=== PATIENT | female | born 1975 | race Caucasian/White ===

== ENCOUNTER → 2018-01-17 | Outpatient (CLI) | payer OTHER ==
--- NOTE | 2018-01-19 08:55 | MM ---
Reason for exam: screening (asymptomatic). Last mammogram was performed 4 years and 1 month ago. History: Patient has history of other cancer at age 26. Took hormonal contraceptives for 18 years. Physical Findings: A clinical breast exam by your physician is recommended on an annual basis and results should be correlated with mammographic findings. MG Screening Mammo w CAD Bilateral CC and MLO view(s) were taken. Prior study comparison: December 12, 2013, bilateral MG diagnostic mammo w CAD [facility]. There are scattered fibroglandular densities. There is chronic nodularity bilaterally. No significant changes when compared with prior studies. ASSESSMENT: Negative, BI-RAD 1 RECOMMENDATION: Routine screening mammogram of both breasts in 1 year.
== END | disposition home or self-care (01) ==
LOC: RADMAMWWP 07:34
PROVIDERS: ATTEND Family Medicine
DX: Z12.31 Encounter for screening mammogram for malignant neoplasm of breast (principal)
CPT/HCPCS: 77067

== ENCOUNTER → 2018-09-24 | Outpatient (CLI) | payer OTHER ==
--- NOTE | 2018-09-24 09:42 | US ---
EXAMINATION TYPE: US abdomen complete DATE OF EXAM: 09/24/2018 COMPARISON: NONE CLINICAL HISTORY: R10.9 Left lateral abd pain,R74.8 Elevated lipase. LLQ pain elevated lipase. EXAM MEASUREMENTS: Liver Length: 14.1 cm Gallbladder Wall: .2 cm CBD: .5 cm Spleen: 11.1 cm Right Kidney: 9.6 x 2.9 x 4.6 cm Left Kidney: 9.8 x 4.0 x 3.5 cm Pancreas: Tail obscured by overlying bowel gas Liver: wnl Gallbladder: wnl Evidence for sonographic Arciniega's sign: No CBD: wnl Spleen: wnl Right Kidney: wnl Left Kidney: wnl Upper IVC: wnl Abd Aorta: wnl The liver is homogenous. The intrahepatic portion of the IVC and proximal abdominal aorta are within normal limits. There is no evidence of cholelithiasis. Common bile duct is unremarkable. The visu alized portions of the pancreas are homogenous. The spleen is unremarkable. Kidneys are symmetric a nd free of hydronephrosis. No renal lesions are seen. IMPRESSION: No distinct abnormality appreciated.
== END | disposition home or self-care (01) ==
LOC: RADUSWWP 09:00
PROVIDERS: ATTEND Nurse Practitioner Family
DX: R10.9 Unspecified abdominal pain (principal); R74.8 Abnormal levels of other serum enzymes
CPT/HCPCS: 76700

== ENCOUNTER → 2019-01-26 | Outpatient (CLI) | payer OTHER ==
--- NOTE | 2019-01-28 09:57 | MM ---
Reason for exam: screening (asymptomatic). Last mammogram was performed 1 year ago. History: Patient has history of other cancer at age 26. Took hormonal contraceptives for 18 years. Physical Findings: A clinical breast exam by your physician is recommended on an annual basis and results should be correlated with mammographic findings. MG Screening Mammo w CAD Bilateral CC and MLO view(s) were taken. Prior study comparison: January 17, 2018, bilateral MG screening mammo w CAD. December 12, 2013, bilateral MG diagnostic mammo w CAD [facility]. The breast tissue is heterogeneously dense. This may lower the sensitivity of mammography. There is no discrete abnormality. No significant changes when compared with prior studies. ASSESSMENT: Negative, BI-RAD 1 RECOMMENDATION: Routine screening mammogram of both breasts in 1 year.
== END | disposition home or self-care (01) ==
LOC: RADMAMWWP 11:00
PROVIDERS: ATTEND Family Medicine
DX: Z12.31 Encounter for screening mammogram for malignant neoplasm of breast (principal)
CPT/HCPCS: 77067

== ENCOUNTER 2021-09-17 07:44 | Day surgery (SDC) | payer BC, OTHER ==
[~2021-09-17 07:44] MED LIST: LACTATED RINGERS 1,000 ML IV SCH
[2021-09-17 08:17] VITALS: TEMP 97.1
[2021-09-17] MEDS ORDERED: LIDOCAINE 1% (10MG/ML) FOR IV START INTRADERMA ONE (08:28)
[2021-09-17] MEDS ORDERED: PROPOFOL 10 MG/ML 20 ML VIAL IV ONE (09:01)
--- NOTE | 2021-09-17 09:23 | P.PCN ---
Date of Procedure: 09/17/21 Procedure(s) Performed: BRIEF HISTORY: Patient is a 46-year-old pleasant white female scheduled for an elective colonoscopy as a part of evaluation of left upper quadrant abdominal pain associated with alternating diarrhea and constipation for the last 6 months duration. He denies any rectal bleeding. PROCEDURE PERFORMED: Colonoscopy with random biopsies. PREOPERATIVE DIAGNOSIS: Left upper quadrant abdominal pain and change in bowel habits. IV sedation per Anesthesia. PROCEDURE: After informed consent was obtained, the patient, was brought into the endoscopy unit. IV sedation was administered by Anesthesia under continuous monitoring. Digital rectal examination was normal. Initially the Olympus CF-160 flexible video colonoscope was then inserted in the rectum, gradually advanced into the cecum without any difficulty. Careful examination was performed as the scope was gradually being withdrawn. Ileocecal valve and the appendiceal orifice were visualized and appeared normal. Prep was excellent. Terminal ileum was intubated and 20 cm visualized and appeared normal. Mucosa of the cecum, ascending colon, transverse colon, descending colon, sigmoid colon, and rectum appeared normal. Biopsies were done from ascending and descending colon to rule out colonoscopy/collagenous colitis. Retroflexion was performed in the rectum and no lesions were seen. The patient tolerated the procedure well. IMPRESSION: Normal-appearing colon from rectum to cecum with no evidence of colorectal neoplasia. RECOMMENDATIONS: Findings of this examination were discussed with the patient as well as her family. She was advised to follow with the biopsy results. Her symptoms have suggestive of irritable bowel syndrome. She'll be seen in office in 2-3 weeks..
[2021-09-17 09:56] VITALS: BP 146/50; PULSE 66; RESP 20
== END 2021-09-17 10:14 | disposition home or self-care (01) ==
LOC: ORWHC2ENDO 07:44
PROVIDERS: ATTEND Internal Medicine Gastroenterology
DX: R10.12 Left upper quadrant pain (principal); R19.7 Diarrhea, unspecified; K59.00 Constipation, unspecified; F39 Unspecified mood [affective] disorder; Z79.899 Other long term (current) drug therapy; Z88.5 Allergy status to narcotic agent; Z88.0 Allergy status to penicillin; Z91.040 Latex allergy status
CPT/HCPCS: 81025; 88305; 45380; J2704

== ENCOUNTER → 2022-06-11 | Outpatient (CLI) | payer OTHER ==
[2022-06-11 12:58] LABS: Basophils # (A) 0.04 X 10*3/uL (0.00-0.10); Basophils % (A) 0.8 %; Eosinophils # (A) 0.18 X 10*3/uL (0.04-0.35); Eosinophils % (A) 3.5 %; HCT 39.2 % (37.2-46.3); HGB 13.2 g/dL (12.0-15.0); Immature Grans, Automated 0.2 %; Lymphocytes % (A) 27.2 %; MCH 31.9 pg (27.0-32.0); MCHC 33.7 g/dL (32.0-37.0); MCV 94.7 fL (80.0-97.0); Mean Platelet Volume 9.6 fL (9.5-12.2); Monocytes # (A) 0.27 X 10*3/uL (0.20-1.00); Monocytes % (A) 5.2 %; NRBC Per 100 WBC 0 /100 WBCS (0.0-0.0); Neutrophils # (A) 3.25 X 10*3/uL (1.80-7.70); Neutrophils % (A) 63.1 %; Platelet Count 242 X 10*3/uL (140-440); RBC 4.14 X 10*6/uL (4.10-5.20); RDW 12.4 % (11.5-14.5); WBC 5.15 X 10*3/uL (4.50-10.00)
[2022-06-11 13:26] LABS: % Iron Saturation 31.08 (12.00-45.00); ALT 18 U/L (8-44); AST 16 U/L (13-35); African American GFR (CKD) 88.4 (60.0-200.0); Albumin 4.3 g/dL (3.8-4.9); Albumin/Globulin Ratio 1.68 (1.60-3.17); Alkaline Phosphatase 31 U/L (41-126); Blood Urea Nitrogen 10.4 mg/dL (9.0-27.0); Calcium 9.5 mg/dL (8.7-10.3); Carbon Dioxide 27.6 mmol/L (20.0-27.5); Chloride 104 mmol/L (96-109); Chol/HDL Ratio 2.21 Ratio; Ferritin 69.5 ng/mL (10.0-291.0); Globulin 2.5 g/dL (1.6-3.3); Glucose 94 mg/dL (70-110); Iron 114 ug/dL (50-170); LDL Cholesterol,Calculated 77.7 mg/dL (0.0-131.0); Non-African American GFR(CKD) 76.3 (60.0-200.0); Potassium 4.7 mmol/L (3.5-5.5); Sodium 141 mmol/L (135-145); Total Iron Binding Capacity 367 ug/dL (228-460); Total Protein 6.8 g/dL (6.2-8.2)
== END | disposition home or self-care (01) ==
LOC: LABWHC1 10:01
PROVIDERS: ATTEND Nurse Practitioner Family
DX: E78.5 Hyperlipidemia, unspecified (principal); R00.2 Palpitations; Z86.2 Personal history of diseases of the blood and blood-forming organs and certain disorders involving the immune mechanism
CPT/HCPCS: 36415; 80053; 80061; 82306; 82607; 82728; 82746; 83036; 83540; 83550; 84443; 85025

== ENCOUNTER → 2022-07-14 | Outpatient (CLI) | payer OTHER ==
--- NOTE | 2022-07-15 06:41 | MM ---
Reason for Exam: Screening (asymptomatic). Last mammogram was performed 3 year(s) and 6 month(s) ago. Patient History: Menarche at age 12. First Full-Term at age 20. Premenopausal. Other cancer, age 26. Patient used Hormonal Contraceptives for 18 years. Risk Values: Ana Rosa 5 year model risk: 0.8%. NCI Lifetime model risk: 8.4%. Prior Study Comparison: 12/12/2013 Bilateral Diagnostic Mammogram, [facility]. 01/17/2018 Bilateral Screening Mammogram, [facility]. 01/26/2019 Bilateral Screening Mammogram, [facility]. Tissue Density: There are scattered fibroglandular densities. Findings: Analyzed By CAD. A focal 1.3 cm asymmetry in the anterior depth slightly medial aspect on CC view only in the left breast is more prominent from prior studies. Summation density versus true lesion. Overall Assessment: Incomplete: need additional imaging evaluation, BI-RAD 0 Management: Special View Mammogram of the left breast. Return for additional spot view and true lateral view left breast. Patient should continue monthly self-breast exams. A clinical breast exam by your physician is recommended on an annual basis. This exam should not preclude additional follow-up of suspicious palpable abnormalities. Note on Ana Rosa scores and lifetime risk: 1. A Ana Rosa score greater than 3% is considered moderate risk. If this is the case, consider specialist referral to assess eligibility for a risk reducing agent. 2. If overall lifetime risk for the development of breast cancer is 20% or higher, the patient may qualify for future screening with alternating mammogram and breast MRI. Electronically signed and approved by: Florentin Kramer M.D.
== END | disposition home or self-care (01) ==
LOC: RADMAMWWP 07:36
PROVIDERS: ATTEND Family Medicine
DX: Z12.31 Encounter for screening mammogram for malignant neoplasm of breast (principal)
CPT/HCPCS: 77067

== ENCOUNTER → 2022-07-20 | Outpatient (CLI) | payer OTHER ==
--- NOTE | 2022-07-20 08:03 | MM ---
Reason for Exam: Additional evaluation requested from abnormal screening. Last screening mammogram was performed less than 1 month ago. Patient History: Menarche at age 12. First Full-Term at age 20. Premenopausal. Other cancer, age 26. Patient used Hormonal Contraceptives for 18 years. Risk Values: Ana Rosa 5 year model risk: 0.8%. NCI Lifetime model risk: 8.4%. Prior Study Comparison: 01/17/2018 Bilateral Screening Mammogram, [facility]. 01/26/2019 Bilateral Screening Mammogram, [facility]. 07/14/2022 Bilateral MG screening mammo w CAD, [facility]. Tissue Density: Left: There are scattered fibroglandular densities. Findings: Analyzed By CAD. Previously seen asymmetry in the left breast only on the CC view at anterior depth does not persist on spot compression views. No new suspicious mass or worrisome microcalcifications. Overall Assessment: Negative, BI-RAD 1 Management: Screening Mammogram of both breasts in 1 year. A clinical breast exam by your physician is recommended on an annual basis and results should be correlated with mammographic findings. This exam should not preclude additional follow-up of suspicious palpable abnormalities. Results were given to the patient verbally at the time of exam. Electronically signed and approved by: Bruce Neo D.O.
== END | disposition home or self-care (01) ==
LOC: RADMAMWWP 07:41
PROVIDERS: ATTEND Family Medicine
DX: R92.8 Other abnormal and inconclusive findings on diagnostic imaging of breast (principal)
CPT/HCPCS: 77065; G0279; 77061

== ENCOUNTER 2024-01-21 21:33 | Emergency (ER) | payer BC, OTHER ==
[2024-01-21 21:40] VITALS: RESP 18; TEMP 97.7
--- NOTE | 2024-01-21 22:16 | ED ---
Fall HPI - General Chief Complaint: Fall Stated Complaint: Fall, Head Injury Time Seen by Provider: 01/21/24 21:37 Source: EMS Mode of arrival: EMS - History of Present Illness Initial Comments: Patient is 48-year-old woman who states she had been drinking, tripped and struck her left frontal head against a window ledge. She was dazed briefly but does not believe she lost consciousness. The patient has marked headache, worse with palpation. She denies change in vision. No neurologic symptoms. No neck pain. Denies other injuries. She states that her last tetanus shot was probably greater than 10 years ago. 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 Witnessed: no Place Fall Occurred: home Loss of Consciousness: none Prolonged Down Time?: no Symptoms Prior to Fall: none Location: head Severity: moderate Context: tripped/slipped, alcohol use Associated Symptoms: headache - Related Data Home Medications Medication Instructions Recorded Confirmed Escitalopram [Lexapro] 20 mg PO DAILY 07/09/13 09/15/21 Calcium Carbonate [Calcium] 600 mg PO DAILY 09/15/21 09/15/21 Cholecalciferol [Vitamin D3 (25 25 mcg PO DAILY 09/15/21 09/15/21 Mcg = 1000 Iu)] Multivitamins, Thera [Multivitamin 1 tab PO DAILY 09/15/21 09/15/21 (formulary)] Zinc 50 mg PO DAILY 09/15/21 09/15/21 Allergies Allergy/AdvReac Type Severity Reaction Status Date / Time Latex, Natural Rubber Allergy Rash/Hives, Verified 09/15/21 15:47 itching acetaminophen [From [place]] AdvReac Nausea Verified 09/15/21 15:33 hydrocodone [From [place]] AdvReac Nausea Verified 09/15/21 15:33 Penicillins AdvReac Nausea Verified 09/15/21 15:33 Review of Systems ROS Statement: Those systems with pertinent positive or pertinent negative responses have been documented in the HPI. ROS Other: All systems not noted in ROS Statement are negative. Constitutional: Denies: fever, chills, weakness Eyes: Denies: vision change Respiratory: Denies: cough, dyspnea Cardiovascular: Denies: chest pain, palpitations, syncope Gastrointestinal: Denies: abdominal pain, nausea, vomiting Musculoskeletal: Denies: back pain Skin: Denies: rash Neurological: Reports: headache. Denies: weakness, numbness, confusion Hematological/Lymphatic: Denies: easy bleeding Past Medical History Past Medical History: Cancer, Osteoarthritis (OA) Additional Past Medical History / Comment(s): "overactive" bowel, abd. pain @times left side, hx. cervical cancer History of Any Multi-Drug Resistant Organisms: None Reported Past Surgical History: Tubal Ligation, Uterine Ablation Additional Past Surgical History / Comment(s): LEEP procedure Past Anesthesia/Blood Transfusion Reactions: No Reported Reaction Past Psychological History: Anxiety Smoking Status: Never smoker General Exam General appearance: alert, in no apparent distress, appears intoxicated Head exam: Present: normocephalic, other (An approximately 8 cm laceration to left frontal area. There is marked tenderness to palpation. No obvious deformity.) Eye exam: Present: normal appearance. Absent: scleral icterus, conjunctival injection ENT exam: Present: normal oropharynx Neck exam: Present: normal inspection, full ROM. Absent: tenderness, meningismus Respiratory exam: Present: normal lung sounds bilaterally. Absent: respiratory distress, wheezes, rales, rhonchi, stridor, chest wall tenderness, accessory muscle use Cardiovascular Exam: Present: regular rate, normal rhythm, normal heart sounds. Absent: systolic murmur, diastolic murmur, rubs, gallop GI/Abdominal exam: Present: soft. Absent: distended, tenderness, guarding, mass Extremities exam: Present: normal inspection, full ROM, normal capillary refill. Absent: tenderness Back exam: Present: normal inspection. Absent: CVA tenderness (R), CVA tenderness (L), vertebral tenderness Neurological exam: Present: alert, oriented X3, CN II-XII intact. Absent: motor sensory deficit Skin exam: Present: warm, dry, intact, normal color. Absent: rash Course Vital Signs 01/21/24 01/21/24 21:36 23:53 Temperature 97.7 F Pulse Rate 83 90 Respiratory 18 18 Rate Blood Pressure 115/90 123/77 O2 Sat by Pulse 95 99 Oximetry Procedures - Laceration Laceration #1 Consent Obtained: verbal consent Indication: laceration Site: face Size (cm): 10 Description: linear Depth: involves muscle layer Anesthetic Used: lidocaine 1% Anesthesia Technique: local infiltration Type of Sutures: nylon, vicryl Size of Sutures: 5-0, 6-0 Number of Sutures: 13 Technique: simple, interrupted Patient Tolerated Procedure: well, no complications Additional Comments: 2 layer closure was performed Medical Decision Making - Medical Decision Making Patient is a 48-year-old woman here to have evaluation after falling and striking her head against a window ledge. The patient does have marked tenderness and therefore CT scan is ordered to assess for bony injury. The patient had CT scan of the brain that I interpreted as negative for acute bony injury, negative for acute intracranial hemorrhage or mass effect Was pt. sent in by a medical professional or institution (, PA, ARCHITECTURAL REPRESENTATIVE, urgent care, hospital, or group home...) When possible be specific @ -[No] Did you speak to anyone other than the patient for history (EMS, parent, family, police, friend...)? What history was obtained from this source @ -[No] Did you review nursing and triage notes (agree or disagree)? Why? @ -[I reviewed and agree with nursing and triage notes] Were old charts reviewed (outside hosp., previous admission, EMS record, old EKG, old radiological studies, urgent care reports/EKG's, group home records)? Report findings @ -[No old charts were reviewed] Differential Diagnosis (chest pain, altered mental status, abdominal pain women, abdominal pain men, vaginal bleeding, weakness, fever, dyspnea, syncope, headache, dizziness, GI bleed, back pain, seizure, CVA, palpatations, mental health, musculoskeletal)? @ -[Differential Musculoskeletal Muscular strain, contusion, ligament sprain, fracture, arthritis, septic arthritis, bursitis, cellulitis, muscle spasm, nerve compression, DVT, arterial occlusion, herpes zoster, electrolyte abnormality, tumor.... This is not meant to be in all inclusive list EKG interpreted by me (3pts min.). @ -[As above] X-rays interpreted by me (1pt min.). @ -[None done] CT interpreted by me (1pt min.). @ -[I interpreted as above U/S interpreted by me (1pt. min.). @ -[None done] What testing was considered but not performed or refused? (CT, X-rays, U/S, labs)? Why? @ -[None] What meds were considered but not given or refused? Why? @ -[None] Did you discuss the management of the patient with other professionals (professionals i.e. , PA, ARCHITECTURAL REPRESENTATIVE, lab, RT, psych nurse, social worker masters, backup administrative coordinator, teacher, correctional officer chief, case loader operator)? Give summary @ -[No] Was smoking cessation discussed for >3mins.? @ -[No] Was critical care preformed (if so, how long)? @ -[No] Were there social determinants of health that impacted care today? How? (Homelessness, low income, unemployed, alcoholism, drug addiction, transportation, low edu. Level, literacy, decrease access to med. care, longterm, rehab)? @ -[No] Was there de-escalation of care discussed even if they declined (Discuss DNR or withdrawal of care, Hospice)? DNR status @ -[No] What co-morbidities impacted this encounter? (DM, HTN, Smoking, COPD, CAD, Cancer, CVA, ARF, Chemo, Hep., AIDS, mental health diagnosis, sleep apnea, morbid obesity)? @ -[None] Was patient admitted / discharged? Hospital course, mention meds given and route, prescriptions, significant lab abnormalities, going to OR and other pertinent info. @ -[Patient is 48-year-old woman following fall with head injury. Laceration repaired after CT scan. Undiagnosed new problem with uncertain prognosis? @ -[No] Drug Therapy requiring intensive monitoring for toxicity (Heparin, Nitro, Insulin, Cardizem)? @ -[No] Were any procedures done? @ -[No] Diagnosis/symptom? @ -[Acute fall injury Acute closed head injury Acute alcohol intoxication Laceration to face with suture repair Acute, or Chronic, or Acute on Chronic? @ -[Acute Uncomplicated (without systemic symptoms) or Complicated (systemic symptoms)? @ -[Uncomplicated Side effects of treatment? @ -[No] Exacerbation, Progression, or Severe Exacerbation? @ -[No] Poses a threat to life or bodily function? How? (Chest pain, USA, MA, pneumonia, PE, COPD, DKA, ARF, appy, cholecystitis, CVA, Diverticulitis, Homicidal, Suicidal, threat to staff... and all critical care pts) @ -[No] Disposition Clinical Impression: Fall, Minor head injury without loss of consciousness, Laceration of face Disposition: HOME SELF-CARE Condition: Good Instructions (If sedation given, give patient instructions): Head Injury (ED), Facial Laceration (ED) Additional Instructions: Your stitches should be removed in 6 days, see the emergency department or your primary physician whichever is more convenient. Is patient prescribed a controlled substance at d/c from ED?: No Referrals: Neeraj Strong Jr, [Primary Care Provider] - 1-2 days
[2024-01-21] MEDS: IBUPROFEN 600 MG TAB PO STA (22:24)
[2024-01-21] MEDS: DIPH,PERTUS(ACELL)TETVAC-LF 0.5 ML VIAL IM ONE (22:25)
[2024-01-21] MEDS: LIDOCAINE 1% INJ 10MG/ML (20 ML MDV) SQ STA (23:20)
[2024-01-21] MEDS: BACITRACIN OINT 1 EACH PACKET TOPICAL ONE (23:52)
[2024-01-21 23:55] VITALS: BP 123/77; PULSE 90
--- NOTE | 2024-01-22 00:18 | CT ---
EXAM: CT Head Without Intravenous Contrast CLINICAL HISTORY: ITS.REASON CT Reason: fall injury TECHNIQUE: Axial computed tomography images of the head/brain without intravenous contrast. CTDI is 49.2 mGy and DLP is 1119.3 mGy-cm. This CT exam was performed using one or more of the following dose reduction techniques: automated exposure control, adjustment of the mA and/or kV according to patient size, and/or use of iterative reconstruction technique. COMPARISON: No previous studies. FINDINGS: Brain: Unremarkable. No hemorrhage. No significant white matter disease. No abnormal extra-axial collection is noted. Midline shift: Midline anatomy is unremarkable. Ventricles: Unremarkable. No ventriculomegaly. Bones/joints: Calvarium is unremarkable. No acute fracture. Soft tissues: Scalp injury is subcutaneous air at the left lateral frontal scalp. Sinuses: Visualized sinuses are unremarkable. Mastoid air cells: Mastoid air cells are well pneumatized. Other findings: Age appropriate changes. IMPRESSION: 1. Left frontal scalp injury with associated subcutaneous air. 2. Age appropriate changes. 3. No acute intracranial pathology. 4. If there is concern for etiology such as early acute lacunar infarcts, MRI imaging of the brain with diffusion-weighted sequences should be performed.
== END 2024-01-21 23:55 | disposition home or self-care (01) ==
LOC: EC 21:33
DX: S01.81XA Laceration without foreign body of other part of head, initial encounter (principal); Z88.0 Allergy status to penicillin; Z88.5 Allergy status to narcotic agent; Z91.040 Latex allergy status; Z23 Encounter for immunization; W01.0XXA Fall on same level from slipping, tripping and stumbling without subsequent striking against object, initial encounter
CPT/HCPCS: 70450; 90715; 99284; 90471; 12015; J2003